=== PATIENT | male | born 2000 | race Caucasian/White ===

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

== ENCOUNTER 2023-01-25 16:13 | Emergency (ER) | payer OTHER ==
[~2023-01-25] VITALS: Ht 182.9 cm; Wt 83.0 kg
[2023-01-25 16:19] VITALS: BP 117/76; PULSE 91; RESP 18; TEMP 98.8; O2SAT 97
[2023-01-25] MEDS ORDERED: LIDOCAINE/EPI MPF 1%1:200000 30 ML VIAL INJ ONE (17:10)
[2023-01-25 17:42] VITALS: BP 117/76; PULSE 91; RESP 18; TEMP 98.8; O2SAT 97
[2023-01-25] MEDS ORDERED: SULF-58 PO (18:39)
== END 2023-01-25 19:09 | disposition home or self-care (01) ==
LOC: MED 16:13
DX: S50.862A Insect bite (nonvenomous) of left forearm, initial encounter (principal); S70.362A Insect bite (nonvenomous), left thigh, initial encounter; L02.414 Cutaneous abscess of left upper limb; L03.116 Cellulitis of left lower limb; Z79.2 Long term (current) use of antibiotics; W57.XXXA Bitten or stung by nonvenomous insect and other nonvenomous arthropods, initial encounter; Y92.89 Other specified places as the place of occurrence of the external cause; Y93.89 Activity, other specified; Y99.8 Other external cause status
CPT/HCPCS: 10060; 99284; J2001